=== PATIENT | female | born 1940 | race Caucasian/White ===

== ENCOUNTER → 2017-01-27 | Outpatient (CLI) | payer OTHER, MEDICARE ==
[~2017-01-27] MED LIST: ALEN70TA2 PO; AMB10 PO; ASCA500 PO; ASPI-461 PO; CHOL100010 PO; CLTP PO; COQ10 PO; CRS10 PO; CYAN10005 PO; DULO60CA44 PO; GABA1CAP PO; HYDR-4852 PO; OMEG10007 PO; PROBIOTIC PO
== END | disposition home or self-care (01) ==
LOC: C.RDSM 14:14
PROVIDERS: ATTEND Physical Medicine & Rehabilitation Sports Medicine
DX: S83.232D Complex tear of medial meniscus, current injury, left knee, subsequent encounter (principal); X58.XXXD Exposure to other specified factors, subsequent encounter; Z96.659 Presence of unspecified artificial knee joint